=== PATIENT | female | born 1970 | race Caucasian/White ===

== ENCOUNTER 2020-03-26 20:18 | Emergency (ER) | payer MEDICAID, OTHER ==
[~2020-03-26] VITALS: Ht 170.2 cm; Wt 79.4 kg
[2020-03-26 20:33] VITALS: BP 104/68
[2020-03-26 22:22] LABS: Urine Bacteria FEW /hpf (None Seen); Urine Blood Negative /uL (Negative); Urine Budding Yeast MODERATE /hpf (None Seen); Urine WBC 29 /hpf (0 - 5)
== END 2020-03-27 00:49 | disposition home or self-care (01) ==
LOC: ER 20:20
DX: M86.8X7 Other osteomyelitis, ankle and foot (principal); E11.51 Type 2 diabetes mellitus with diabetic peripheral angiopathy without gangrene; L97.529 Non-pressure chronic ulcer of other part of left foot with unspecified severity
CPT/HCPCS: 73630; 73700; 81001